=== PATIENT | female | born 1975 | race American Indian/Alaskan Native ===

== ENCOUNTER 2020-09-18 09:55 | Emergency (ER) | payer OTHER, MEDICAID ==
[2020-09-18 10:05] VITALS: BP 152/82
== END 2020-09-18 13:45 | disposition home or self-care (01) ==
LOC: ED 09:55
DX: M25.461 Effusion, right knee (principal); I10 Essential (primary) hypertension; F17.200 Nicotine dependence, unspecified, uncomplicated; Z90.49 Acquired absence of other specified parts of digestive tract; Z98.890 Other specified postprocedural states; Z79.899 Other long term (current) drug therapy